=== PATIENT | female | born 1950 | race Caucasian/White ===

== ENCOUNTER 2016-05-13 11:57 | Emergency (ER) | payer OTHER ==
[~2016-05-13] VITALS: Ht 154.9 cm; Wt 71.0 kg
[2016-05-13 12:07] VITALS: TEMP 36.8; Ht 154.9 cm; Wt 71.0 kg
--- NOTE | 2016-05-13 13:06 | DIAGNOSTIC IMAGING REPORT ---
RIGHT KNEE 3 VIEWS CLINICAL HISTORY: Right knee pain status post trauma COMPARISON: None. DISCUSSION: No fractures or dislocations are visualized. The bones appear mildly osteopenic. There are minor degenerative changes. IMPRESSION: No fractures or dislocations identified. Electronically signed by: Celestino Gary M.D. 05/13/2016 1:04 PM
[2016-05-13] MEDS ORDERED: MONT1TAB3 PO (13:19)
[2016-05-13] MEDS ORDERED: INSPMPNVLG (13:19)
[2016-05-13] MEDS ORDERED: PARO1TAB27 PO (13:19)
--- NOTE | 2016-05-13 13:44 | EMERGENCY ROOM VISIT NOTE ---
ED Visit Note First contact with patient: 12:09 CHIEF COMPLAINT: knee pain HISTORY OF PRESENT ILLNESS: This 65-year-old female patient presents to the emergency department ambulatory after sustaining an injury to the right knee a few hours prior to arrival. The patient reports she has chronic issues with her right knee. She states that she has had problems with the ACL in the right knee. She states that today while she was walking, she twisted her knee, causing increased pain. The patient denies any other injuries besides their knee. The patient denies swelling or bruising. There is increased pain with weightbearing. They rate the pain as sharp and 5/10. The patient states they are able to walk on it. No numbness or tingling. No previous injuries to this knee. No ankle, foot or hip pain. The patient sees an orthopedist in [place]. REVIEW OF SYSTEMS: A 6 system review of systems was completed with positives and pertinent negatives listed in the HPI. ALLERGIES: Penicillins MEDICATIONS: Paxil, insulin pump PMH: Type 1 diabetes, hip fracture, hysterectomy SOCIAL HISTORY: The patient lives locally with her . Nonsmoker. She admits to occasional alcohol use. PHYSICAL EXAM: Vital Signs: Reviewed Nurse's notes, vital signs stable. GENERAL : This is a 65-year-old female, no acute distress, but appears in pain, well- developed, well-nourished. MENTAL STATUS: Alert, oriented to person place and time, and cooperative. MUSCULOSKELETAL: The right knee is not swollen. There is no significant ecchymosis. There is no joint effusion present. The patient is tender along the medial aspect of the knee. There is no joint line tenderness. The patella does not subluxate. Range of motion is full. Strength of the quads and hamstrings is 5/5. Salazar's is negative. Natalya's and Anterior Drawer tests are negative. There is no laxity with varus and valgus stressing. The foot and toes are warm and well-perfused. Dorsalis pedis pulse 2+. Sensation to pain and light touch is intact. Capillary refill less than 2 seconds. RADIOGRAPHIC FINDINGS: RIGHT KNEE 3 VIEWS CLINICAL HISTORY: Right knee pain status post trauma COMPARISON: None. DISCUSSION: No fractures or dislocations are visualized. The bones appear mildly osteopenic. There are minor degenerative changes. IMPRESSION: No fractures or dislocations identified. EMERGENCY DEPARTMENT COURSE: I examined the patient. X-rays of the right knee were reviewed by myself and read by radiology and reveal no acute findings. The patient has a knee brace at home which she will wear. She will follow-up with her established orthopedics. She declined analgesics. The patient was discharged home in good condition. DIAGNOSIS: Right knee pain Current/Historical Medications Scheduled Insulin Aspart (novoLOG INSULIN PUMP ), 1 EA N/A UD Montelukast Sodium (Singulair), 10 MG PO DAILY Paroxetine (Paxil), 20 MG PO DAILY Allergies Coded Allergies: Penicillins (Verified Allergy, Unknown, RASH, 05/13/16) Vital Signs Date Time Temp Pulse Resp B/P Pulse Ox O2 Delivery O2 Flow Rate FiO2 05/13/16 14:00 100 96 131/77 96 Room Air 05/13/16 12:07 36.8 97 18 124/67 99 Room Air Departure Information Dispostion Home / Self-Care Condition GOOD Referrals Iain Carlin MD (PCP) Patient Instructions A Signature Page, My [facility] Additional Instructions You have been treated in the Emergency Department for Knee Pain. For pain control, you can use the following [id number] medicines (if >12 yo): - Regular strength (325mg/tab) Tylenol (acetaminophen) 2 tabs every 4-6 hours as needed. Do not exceed 12 tablets in a 24 hour period. Avoid taking more than 4 grams (4000 mg) of Tylenol per day. This includes any other sources of acetaminophen you may take on a regular basis. - Regular strength (200 mg/tab) Advil (ibuprofen) 1-2 tabs every 4-6 hours as needed. Do not exceed a dose of 3200 mg per day. If this is a recent injury (<24 hrs), ice can be applied to the area of pain for the first 3 days to help decrease pain and inflammation. Ice massages can be performed by freezing water in a paper cup, peeling back the cup to expose the ice and then massaging over the affected area. Call your established orthopedic surgeon for further evaluation of your knee pain. Wear your brace as needed for pain in the knee. Return to the Emergency Department if your current symptoms worsen despite treatment course outlined above.
[2016-05-13 14:00] VITALS: BP 131/77; PULSE 100; O2SAT 96
== END 2016-05-13 14:15 | disposition home or self-care (01) ==
LOC: C.EDB 12:00 → C.EDD 14:15
DX: M25.561 Pain in right knee (principal); E10.9 Type 1 diabetes mellitus without complications; Z79.899 Other long term (current) drug therapy; Z88.0 Allergy status to penicillin; Z96.41 Presence of insulin pump (external) (internal); X50.1XXA Overexertion from prolonged static or awkward postures, initial encounter